=== PATIENT | female | born 1990 | race Caucasian/White ===

== ENCOUNTER 2020-06-27 07:32 | Outpatient (CLI) | payer BC ==
[2020-06-27 17:46] LABS: SARS-CoV-2 PCR by NAA Not Detected (NotDetected)
== END 2020-06-27 07:33 | disposition home or self-care (01) ==
LOC: CSHLAB 07:32
PROVIDERS: ATTEND Obstetrics & Gynecology
DX: Z20.822 Contact with and (suspected) exposure to COVID-19 (principal)
CPT/HCPCS: 87635; U0003; U0005

== ENCOUNTER 2020-07-01 15:10 | Inpatient (IN) | payer BC ==
[2020-07-01] MEDS ORDERED: Misoprostol 200 MCG TAB PR PRN (23:05)
[2020-07-01] MEDS ORDERED: NS / Oxytocin 40 units/1000ml 1,000 ML IV PRN (23:05)
[2020-07-01] MEDS ORDERED: HYDROcodone/Acetaminophen 5/325 mg Tablet PO PRN ×2 (23:05)
[2020-07-01] MEDS ORDERED: Lidocaine 1% (PF) 30 ML VIAL SC PRN (23:05)
[2020-07-01] MEDS ORDERED: Ibuprofen 800 MG TAB PO PRN (23:05)
[2020-07-01] MEDS ORDERED: Docusate 100 MG CAP PO PRN (23:05)
[2020-07-01] MEDS ORDERED: Diphenoxylate HCl/Atropine Tablet PO PRN ×2 (23:05)
[2020-07-01] MEDS ORDERED: Zolpidem Tartrate 5 MG TAB PO PRN (23:05)
[2020-07-01] MEDS ORDERED: Promethazine HCl 25 MG/ML VIAL IM PRN (23:05)
[2020-07-01] MEDS ORDERED: Butorphanol Tartrate 1 MG/ML VIAL SLOW IVP PRN (23:05)
[2020-07-01] MEDS ORDERED: hydrALAZINE 20 MG/ML VIAL SLOW IVP PRN (23:05)
[2020-07-01] MEDS ORDERED: Ondansetron PF 4 MG/2 ML Vial IVP PRN (23:05)
[2020-07-01] MEDS ORDERED: Acetaminophen 500 MG TAB PO PRN (23:05)
[2020-07-01 23:24] VITALS: BMI 23.4
[2020-07-02] MEDS: Lactated Ringer's 1,000 ML IV SCH ×3 (00:01→12:33)
[2020-07-02] MEDS: Misoprostol 100 MCG TAB VAG SCH ×4 (00:01→21:19)
[2020-07-02 00:40] LABS: Hemoglobin 10.1 g/dL (12.0-15.5); Mean Corpuscular Hemoglobin 29.6 pg (27.0-33.0); Mean Corpuscular Volume 87.1 fl (81.6-98.3); Mean Platelet Volume 11.7 fl (7.4-10.4); Platelet Count 174 10x3/uL (150-450); RBC Distribution Width 12.9 % (11.5-14.5); Red Blood Cell (RBC) Count 3.41 10x6/uL (3.90-5.03); White Blood Cell (WBC) Count 9.7 10x3/uL (3.5-10.5)
[2020-07-02 06:17] LABS: Hep B Surf Ag Non-Reactive S/CO (NonReactive); Syphilis Antibody Nonreactive (Nonreactive); Syphilis Antibody Index 0.02 S/CO (<1.00 Non-Reactive)
[2020-07-02 06:18] LABS: HBSAg Index 0.15 S/CO (0-0.99)
[2020-07-02] MEDS ORDERED: NS w/ Oxytocin 30 units 500 ML ONE (07:12)
[2020-07-02] MEDS ORDERED: Fentanyl 4 mcg/Bup 0.1% Cadd 100 ML ONE ×2 (10:02→17:46)
[2020-07-02] MEDS ORDERED: Misoprostol 200 MCG TAB VAG PRN (20:52)
[2020-07-02] MEDS ORDERED: diphenhydrAMINE 25 MG CAP PO PRN (20:52)
[2020-07-02] MEDS ORDERED: Lanolin Ointment 7 GM TUBE TOP PRN (20:52)
[2020-07-02] MEDS ORDERED: hydrALAZINE 20 MG/ML VIAL SLOW IVP PRN (20:52)
[2020-07-02] MEDS ORDERED: Benzocaine-Menthol 82.5 ML CAN TOP PRN (20:52)
[2020-07-02] MEDS ORDERED: Adacel (T-DAP) 0.5 ML SYRINGE IM ONE (20:52)
[2020-07-02] MEDS ORDERED: Milk Of Magnesia 30 ML UDCUP PO PRN (20:52)
[2020-07-02] MEDS ORDERED: Ondansetron PF 4 MG/2 ML Vial IVP PRN (20:52)
[2020-07-02] MEDS ORDERED: Bisacodyl 10 MG SUPP PR PRN (20:52)
[2020-07-02] MEDS ORDERED: HYDROcodone/Acetaminophen 5/325 mg Tablet PO PRN ×2 (20:52)
[2020-07-02] MEDS ORDERED: Preparation H Ointment 28 GM TUBE PR PRN (20:52)
[2020-07-02] MEDS ORDERED: Zolpidem Tartrate 5 MG TAB PO PRN (20:52)
[2020-07-02] MEDS ORDERED: Witch Hazel-Glycerin 1 EACH JAR TOP PRN (20:56)
[2020-07-02] MEDS ORDERED: NS w/ Oxytocin 30 units 500 ML IV SCH (21:15)
[2020-07-03] MEDS: Docusate Calcium (SURFAK) 240 MG CAP PO SCH ×4 (01:15→20:51)
[2020-07-03] MEDS: Ibuprofen 800 MG TAB PO SCH ×4 (01:15→20:52)
[2020-07-03 07:47] LABS: Hemoglobin 9.5 g/dL (12.0-15.5); Mean Corpuscular HGB CONC 33.5 g/dL (32.0-36.0); Mean Corpuscular Hemoglobin 29.7 pg (27.0-33.0); Mean Corpuscular Volume 88.8 fl (81.6-98.3); Mean Platelet Volume 11.8 fl (7.4-10.4); Platelet Count 162 10x3/uL (150-450); RBC Distribution Width 12.6 % (11.5-14.5); White Blood Cell (WBC) Count 14.9 10x3/uL (3.5-10.5)
[2020-07-03] MEDS: Prenatal Vitamin 1 TAB PO SCH (08:53)
[2020-07-03] MEDS: Ferrous Sulfate 325 MG TAB PO SCH ×2 (08:53→20:51)
[2020-07-04] MEDS: Ibuprofen 800 MG TAB PO SCH (05:51)
[2020-07-04 07:53] VITALS: BP 107/58; TEMP 98.6
[2020-07-04] MEDS: Prenatal Vitamin 1 TAB PO SCH (08:35)
[2020-07-04] MEDS: Docusate Calcium (SURFAK) 240 MG CAP PO SCH (08:35)
[2020-07-04] MEDS: Ferrous Sulfate 325 MG TAB PO SCH (08:35)
== END 2020-07-04 11:56 | disposition home or self-care (01) | DRG 806 ==
LOC: CSHLD 22:48 → EDSTATUS 07-02 10:00 → CSHPP 07-02 23:21
PROVIDERS: ADMIT Obstetrics & Gynecology; ATTEND Obstetrics & Gynecology
PROC: 3E0D7GC Introduction of Other Therapeutic Substance into Mouth and Pharynx, Via Natural or Artificial Opening (ICD-10-PCS; 2020-07-01)
PROC: 10D07Z6 Extraction of Products of Conception, Vacuum, Via Natural or Artificial Opening (ICD-10-PCS; principal; 2020-07-02)
PROC: 0KQM0ZZ Repair Perineum Muscle, Open Approach (ICD-10-PCS; 2020-07-02)
PROC: 3E033VJ Introduction of Other Hormone into Peripheral Vein, Percutaneous Approach (ICD-10-PCS; 2020-07-02)
PROC: 3E0234Z Introduction of Serum, Toxoid and Vaccine into Muscle, Percutaneous Approach (ICD-10-PCS; 2020-07-03)
DX: O26.893 Other specified pregnancy related conditions, third trimester (principal); D62 Acute posthemorrhagic anemia; Z37.0 Single live birth; Z67.41 Type O blood, Rh negative; Z3A.39 39 weeks gestation of pregnancy; O99.344 Other mental disorders complicating childbirth; F90.9 Attention-deficit hyperactivity disorder, unspecified type; Z20.822 Contact with and (suspected) exposure to COVID-19; O75.81 Maternal exhaustion complicating labor and delivery; O70.1 Second degree perineal laceration during delivery; O32.8XX0 Maternal care for other malpresentation of fetus, not applicable or unspecified; Z79.899 Other long term (current) drug therapy; O90.81 Anemia of the puerperium
CPT/HCPCS: 36415; 51702; 85027; 85461; 86780; 86850; 86900; 86901; 87340; 90384; 96372; J0595; J2590